=== PATIENT | female | born 1975 | race African-American/Black ===

== ENCOUNTER 2016-10-18 07:52 | Emergency (ER) | payer MEDICAID ==
[~2016-10-18] VITALS: Ht 165.1 cm; Wt 90.0 kg
[~2016-10-18 07:52] MED LIST: KETO10 PO
[2016-10-18 07:53] VITALS: BP 170/101; PULSE 97; RESP 17; TEMP 97.9; O2SAT 95
[2016-10-18] MEDS ORDERED: SODIUM CHLOR 0.9% 1000 ML INJ 1,000 ML IV ONE (08:21)
[2016-10-18] MEDS ORDERED: diphenhydrAMINE HCL 50 MG/ML VIAL IVP ONE (08:30)
[2016-10-18] MEDS ORDERED: SODIUM CHLORIDE 0.9% FLUSH 5 ML FLUSH IVF PRN (08:30)
[2016-10-18] MEDS ORDERED: MORPHINE SULFATE 4 MG/ML INJ IV PUSH ONE (08:30)
[2016-10-18] MEDS ORDERED: KETOROLAC TROMETHAMINE 30 MG/ML (IVP) VIAL IVP ONE (08:30)
[2016-10-18] MEDS ORDERED: PROCHLORPERAZINE INJ 10 MG/2 ML VIAL IVP ONE (08:30)
--- NOTE | 2016-10-18 08:35 | PD ---
HPI Chief Complaint: Headache Time Seen by Provider: 08:06 Travel History International Travel<30 days: No Contact w/Intl Traveler<30days: No Traveled to known affect area: No History of Present Illness HPI The patient is a 41-year-old [place] female who presents to the emergency department for headache. The patient states her headache started yesterday afternoon, after she awakened from a nap. The headache came on gradually, is located bilaterally in the temporal area, radiates to the neck bilaterally, but denies any posterior neck pain. The patient does complain of photophobia, nausea, and vomiting. The patient does have a history of similar headaches in the past, states she had a workup at ages 16 which was unremarkable. The patient does state she's had normal imaging in the past, is not currently followed by a neurologist. The patient does have a primary physician, Dr. Benson. The patient denies any weakness or numbness of the upper or lower extremities. The patient normal takes Tylenol for her headaches , however, the Tylenol did not alleviate her headache this time. PFSH Past Medical History ?: Not LMP: 10/14/16 : 5 Para: 5 Tubal Ligation: Yes Past Surgical History Section: Yes Social History Alcohol Use: No Tobacco Use: Yes (1 ppd) Substance Use: Yes (marijuana 01/10/16) Allergies-Medications (Allergen,Severity, Reaction): Coded Allergies: Lortab (Verified Allergy, Severe, Hives, 01/11/16) Reported Meds & Prescriptions Reported Meds & Active Scripts Active Toradol (Ketorolac Tromethamine) 10 Mg Tab 10 Mg PO Q8 *DO NOT EXCEED 40 MG/DAY* *DURATION IS NOT TO EXCEED 5 DAYS* Review of Systems Except as stated in HPI: all other systems reviewed are Neg General / Constitutional: No: Fever Eyes: Positive: Photophobia, No: Blurred Vision HENT: Positive: Headaches, Neck Pain, No: Neck Stiffness Cardiovascular: No: Chest Pain or Discomfort Respiratory: No: Shortness of Breath Gastrointestinal: Positive: Nausea, Vomiting, No: Abdominal Pain Musculoskeletal: No: Weakness Neurologic: Positive: Headache, No: Weakness, Paresthesia, Sensory Disturbance Physical Exam Narrative GENERAL: Awake, alert, pleasant 41-year-old female who appears her stated age and is in no acute respiratory distress. The patient initially is examined in a darkened room. SKIN: Warm and dry. HEAD: Atraumatic. Normocephalic. EYES: Pupils equal and round. Pupils are 4 mm bilateral and reactive. EOMs are intact. Patient is able to see fingers at a distance of 2 feet without difficulty. ENT: No nasal bleeding or discharge. Mucous membranes pink and moist. NECK: Trachea midline. No JVD. No meningeal signs. CARDIOVASCULAR: Regular rate and rhythm. No murmur appreciated. RESPIRATORY: No accessory muscle use. Clear to auscultation. Breath sounds equal bilaterally. GASTROINTESTINAL: Abdomen soft, non-tender, nondistended. MUSCULOSKELETAL: No obvious deformities. No clubbing. No cyanosis. No edema. NEUROLOGICAL: Awake and alert. No obvious cranial nerve deficits. Motor grossly within normal limits. Normal speech. Nonfocal. Oriented 4. Follows commands without difficulty. PSYCHIATRIC: Appropriate mood and affect; insight and judgment normal. Data Data Last Documented VS Vital Signs Date Time Temp Pulse Resp B/P Pulse Ox O2 Delivery O2 Flow Rate FiO2 10/18/16 09:20 79 18 147/81 100 Room Air 10/18/16 07:53 97.9 Orders Ecg Monitoring (10/18/16 08:21) Iv Access Insert/Monitor (10/18/16 08:21) Oximetry (10/18/16 08:21) Sodium Chloride 0.9% Flush (Ns Flush) (10/18/16 08:30) Ketorolac Inj (Toradol Inj) (10/18/16 08:30) Prochlorperazine Inj (Compazine Inj) (10/18/16 08:30) Diphenhydramine Inj (Benadryl Inj) (10/18/16 08:30) Sodium Chlor 0.9% 1000 Ml Inj (Ns 1000 M (10/18/16 08:21) Morphine Inj (Morphine Inj) (10/18/16 08:30) MDM Medical Decision Making Medical Screen Exam Complete: Yes Emergency Medical Condition: Yes Medical Record Reviewed: Yes Differential Diagnosis Differential diagnosis includes tension headache, migraine, subarachnoid hemorrhage, venous sinus thrombosis, cavernous sinus thrombosis, glaucoma. Narrative Course IV was established, the patient was placed on cardiac telemetry monitoring and continuous pulse oximetry monitoring, and the patient was administered a migraine cocktail. The patient was administered Toradol, morphine, Compazine, Benadryl, and IV fluids. The patient was reevaluated at 10:20 AM, her headache had resolved. Patient is stable for discharge home and outpatient follow-up. The patient has a ride in the room with her. Diagnosis Primary Impression: Cephalgia Qualified Code: R51 - Acute nonintractable headache, unspecified headache type Patient Instructions: General Instructions, Narcotic given in the ED Additional Instructions: Follow-up with your primary physician. Return if symptoms worsen or progress. Fioricet as needed for pain. Plenty fluids to stay hydrated. Med/Other Pt SpecificInfo: Prescription(s) given Scripts Jyvzgdkcgw-Dnlbkcyovnfyx-Ksibohio (Fioricet)50-300-40 Mg Cap1 Cap PO Q4H PRN ( HEADACHE) #12 CAP Ref 0 Prov:Jass Robles MD 10/18/16 Disposition: 01 DISCHARGE HOME Condition: Stable Jass Robles MD Oct 18, 2016 08:35
[2016-10-18 09:20] VITALS: BP 147/81; PULSE 79; RESP 18; O2SAT 100
[2016-10-18] MEDS ORDERED: BUTA1CAP PO (10:28)
== END 2016-10-18 11:10 | disposition home or self-care (01) ==
LOC: NEPC 07:52
DX: R51 Headache (principal); H53.149 Visual discomfort, unspecified; R11.2 Nausea with vomiting, unspecified; F17.210 Nicotine dependence, cigarettes, uncomplicated
CPT/HCPCS: 96361; 96374; 96375; 99283; J0780; J1200; J1885; J2270; J7030

== ENCOUNTER 2017-01-11 05:37 | Emergency (ER) | payer MEDICAID ==
[~2017-01-11 05:37] MED LIST changes: +BUTA1CAP PO
[2017-01-11 05:40] VITALS: BP 139/96; PULSE 105; RESP 20; TEMP 98.9; O2SAT 98
[2017-01-11] MEDS ORDERED: SODIUM CHLOR 0.9% 1000 ML INJ 1,000 ML IV SCH (06:01)
[2017-01-11] MEDS ORDERED: SODIUM CHLORIDE 0.9% FLUSH 10 ML FLUSH IV FLUSH PRN (06:15)
[2017-01-11] MEDS ORDERED: ONDANSETRON HCL 4 MG/2 ML VIAL IVP ONE (06:15)
[2017-01-11] MEDS ORDERED: MORPHINE SULFATE 4 MG/ML INJ IV PUSH ONE (06:15)
[2017-01-11] MEDS ORDERED: diphenhydrAMINE HCL 50 MG/ML VIAL IV PUSH ONE (06:15)
--- NOTE | 2017-01-11 06:22 | PD ---
HPI Chief Complaint: Abdominal Pain Time Seen by Provider: 05:50 Travel History International Travel<30 days: No Contact w/Intl Traveler<30days: No Traveled to known affect area: No History of Present Illness HPI 41yo F with no PMH presents to the ED with c/o right lower quadrant pain about an hour prior to arrival. +NBNB vomiting. Denies any fever, chest pain, sob, dysuria, hematuria, vaginal discharge or bleeding. PSH . Did not take anything for pain before. States it is constant, severe, and hard to describe. PFSH Past Medical History Medical History: Denies Significant Hx Diminished Hearing: No Tetanus Vaccination: Unknown Influenza Vaccination: No ?: Not : 5 Para: 5 Tubal Ligation: Yes Past Surgical History Surgical History: No Previous Surgery Section: Yes Social History Alcohol Use: No Tobacco Use: Yes (1 ppd) Substance Use: Yes (marijuana 01/10/16) Allergies-Medications (Allergen,Severity, Reaction): Coded Allergies: Lortab (Verified Allergy, Severe, Hives, 01/11/17) Reported Meds & Prescriptions Reported Meds & Active Scripts Active Fioricet (Jdlnbsqeai-Ikmswpzsrhsli-Akemfxeu) 50-300-40 Mg Cap 1 Cap PO Q4H PRN Review of Systems Except as stated in HPI: all other systems reviewed are Neg Physical Exam Narrative GENERAL: 41yo F in moderate distress. SKIN: Focused skin assessment warm/dry. HEAD: Atraumatic. Normocephalic. CARDIOVASCULAR: Regular rate and rhythm. No murmur appreciated. RESPIRATORY: No accessory muscle use. Clear to auscultation. Breath sounds equal bilaterally. GASTROINTESTINAL: Abdomen soft, +TTP RLQ. +TTP suprapubic region. No rebound tenderness or guarding. MUSCULOSKELETAL: No obvious deformities. No clubbing. No cyanosis. No edema. NEUROLOGICAL: Awake and alert. No obvious cranial nerve deficits. Motor grossly within normal limits. Normal speech. PSYCHIATRIC: Appropriate mood and affect; insight and judgment normal. Data Data Last Documented VS Vital Signs Date Time Temp Pulse Resp B/P Pulse Ox O2 Delivery O2 Flow Rate FiO2 01/11/17 11:08 67 15 120/60 98 01/11/17 07:56 Room Air 01/11/17 05:40 98.9 Orders Complete Blood Count With Diff (01/11/17 06:01) Comprehensive Metabolic Panel (01/11/17 06:01) Lipase (01/11/17 06:01) Prothrombin Time / Inr (Pt) (01/11/17 06:01) Act Partial Throm Time (Ptt) (01/11/17 06:01) Urinalysis - C+S If Indicated (01/11/17 06:01) Ct Abd/Pel W Iv Contrast(Rout) (01/11/17 06:01) Iv Access Insert/Monitor (01/11/17 06:01) Ecg Monitoring (01/11/17 06:01) Oximetry (01/11/17 06:01) Morphine Inj (Morphine Inj) (01/11/17 06:15) Ondansetron Inj (Zofran Inj) (01/11/17 06:15) Sodium Chlor 0.9% 1000 Ml Inj (Ns 1000 M (01/11/17 06:01) Sodium Chloride 0.9% Flush (Ns Flush) (01/11/17 06:15) Bhcg Screen Qualitative (01/11/17 06:01) Diphenhydramine Inj (Benadryl Inj) (01/11/17 06:15) Iohexol 350 Inj (Omnipaque 350 Inj) (01/11/17 08:28) Sodium Chlor 0.9% 1000 Ml Inj (Ns 1000 M (01/11/17 10:00) Labs Laboratory Tests Test 01/11/17 01/11/17 05:50 10:00 White Blood Count 12.6 TH/MM3 Red Blood Count 4.63 MIL/MM3 Hemoglobin 9.6 GM/DL Hematocrit 31.3 % Mean Corpuscular Volume 67.7 FL Mean Corpuscular Hemoglobin 20.8 PG Mean Corpuscular Hemoglobin 30.7 % Concent Red Cell Distribution Width 21.2 % Platelet Count 248 TH/MM3 Mean Platelet Volume 9.5 FL Neutrophils (%) (Auto) 48.6 % Lymphocytes (%) (Auto) 36.4 % Monocytes (%) (Auto) 10.4 % Eosinophils (%) (Auto) 3.9 % Basophils (%) (Auto) 0.7 % Neutrophils # (Auto) 6.1 TH/MM3 Lymphocytes # (Auto) 4.6 TH/MM3 Monocytes # (Auto) 1.3 TH/MM3 Eosinophils # (Auto) 0.5 TH/MM3 Basophils # (Auto) 0.1 TH/MM3 CBC Comment DIFF FINAL Differential Comment Prothrombin Time 10.5 SEC Prothromb Time International 1.0 RATIO Ratio Activated Partial 23.6 SEC Thromboplast Time Sodium Level 139 MEQ/L Potassium Level 3.2 MEQ/L Chloride Level 105 MEQ/L Carbon Dioxide Level 25.7 MEQ/L Anion Gap 8 MEQ/L Blood Urea Nitrogen 6 MG/DL Creatinine 0.84 MG/DL Estimat Glomerular Filtration 90 ML/MIN Rate Random Glucose 101 MG/DL Calcium Level 8.7 MG/DL Total Bilirubin 0.2 MG/DL Aspartate Amino Transf 15 U/L (AST/SGOT) Alanine Aminotransferase 15 U/L (ALT/SGPT) Alkaline Phosphatase 73 U/L Total Protein 8.0 GM/DL Albumin 3.3 GM/DL Lipase 136 U/L Beta HCG, Qualitative LESS THAN 1 MIU/ML Urine Color YELLOW Urine Turbidity CLEAR Urine pH 6.5 Urine Specific [place] GREATER THAN 1.050 Urine Protein TRACE mg/dL Urine Glucose (UA) NEG mg/dL Urine Ketones NEG mg/dL Urine Occult Blood NEG Urine Nitrite NEG Urine Bilirubin NEG Urine Urobilinogen LESS THAN 2.0 MG/DL Urine Leukocyte Esterase NEG Urine RBC 1 /hpf Urine WBC LESS THAN 1 /hpf Urine Squamous Epithelial 8 /hpf Cells Urine Mucus FEW /lpf Microscopic Urinalysis Comment CULT NOT INDICATED MDM Medical Decision Making Medical Screen Exam Complete: Yes Emergency Medical Condition: Yes Differential Diagnosis Acute appendicitis vs. cystitis vs. colitis Narrative Course 41yo F with RLQ pain for 1 hour with nausea and NBNB vomiting. IV placed, will obtain labs, and do CTa/p+ to r/o appendicitis. Pt states she can have morphine but needs benadryl with it because it causes itching. Denies any anaphylactic reaction to it. Sign out to next team to follow up labs, CT and disposition. Diagnosis Primary Impression: Abdominal pain Qualified Code: R10.9 - Abdominal pain, unspecified location Ivonne Beth DO Jan 11, 2017 06:22
[2017-01-11 06:25] VITALS: RESP 28; O2SAT 98
[2017-01-11 07:00] LABS: AUTOMATED NEUTROPHIL # 6.1 TH/MM3 (1.8-7.7); BASOPHIL # 0.1 TH/MM3 (0-0.2); BASOPHIL % 0.7 % (0.0-2.0); EOSINOPHIL # 0.5 TH/MM3 (0-0.4); EOSINOPHIL % 3.9 % (0.0-4.0); HEMATOCRIT 31.3 % (35.0-46.0); HEMO FLAGS DIFF FINAL; LYMPH % 36.4 % (9.0-44.0); LYMPHOCYTE # 4.6 TH/MM3 (1.0-4.8); MEAN CELL VOLUME 67.7 FL (80.0-100.0); MEAN CORPUSCULAR HEMOGLOBIN 20.8 PG (27.0-34.0); MEAN CORPUSCULAR HGB CONC 30.7 % (32.0-36.0); MONO % 10.4 % (0.0-8.0); NEUT % 48.6 % (16.0-70.0); PLATELET COUNT 248 TH/MM3 (150-450); RED BLOOD COUNT 4.63 MIL/MM3 (4.00-5.30); RED CELL DISTRIBUTION WIDTH 21.2 % (11.6-17.2); WHITE BLOOD COUNT 12.6 TH/MM3 (4.0-11.0)
[2017-01-11 07:04] LABS: APTT (PATIENT) 23.6 SEC (24.3-30.1); PROTHROMBIN TIME - PATIENT 10.5 SEC (9.8-11.6)
[2017-01-11 07:16] LABS: ANION GAP 8 MEQ/L (5-15); AST (GOT) 15 U/L (15-37); BICARBONATE 25.7 MEQ/L (21.0-32.0); BLOOD UREA NITROGEN 6 MG/DL (7-18); CHLORIDE 105 MEQ/L (98-107); GLOMERULAR FILTRATION RATE 90 ML/MIN (>89); POTASSIUM 3.2 MEQ/L (3.5-5.1); SODIUM (NA) 139 MEQ/L (136-145)
[2017-01-11 07:17] LABS: ALT (GPT) 15 U/L (10-53)
[2017-01-11 07:21] LABS: ALKALINE PHOSPHATASE 73 U/L (45-117); TOTAL BILIRUBIN ADULT 0.2 MG/DL (0.2-1.0)
[2017-01-11 07:22] LABS: BHCG SCREEN QUALITATIVE LESS THAN 1 MIU/ML (0-5)
[2017-01-11 07:56] VITALS: BP 122/77; PULSE 77; RESP 18; O2SAT 97
[2017-01-11] MEDS ORDERED: IOHEXOL 350 MG/ML 10 ML VIAL (for RAD DIAG) IV ONE (08:28)
--- NOTE | 2017-01-11 09:53 | RADRPT ---
EXAM DATE/TIME: 01/11/2017 08:14 [facility] COMPARISON: No previous studies available for comparison. INDICATIONS : Right lower quadrant pain for 1 day. IV CONTRAST: 97 cc Omnipaque 350 (iohexol) IV ORAL CONTRAST: No oral contrast ingested. RADIATION DOSE: 12.49 CTDIvol (mGy) MEDICAL HISTORY : NONE SURGICAL HISTORY : Tubal ligation. section. ENCOUNTER: Initial ACUITY: 1 day PAIN SCALE: 6/10 LOCATION: Right lower quadrant TECHNIQUE: Volumetric scanning of the abdomen and pelvis was performed. Using automated exposure control and ad justment of the mA and/or kV according to patient size, radiation dose was kept as low as reasonably achievable to obtain optimal diagnostic quality images. FINDINGS: LOWER LUNGS: Minimal atelectasis in the right lung base. 2 cm cyst at the extreme right lung base. LIVER: Homogeneous density without lesion. There is no dilation of the biliary tree. No calcified gallston es. SPLEEN: Normal size without lesion. PANCREAS: Within normal limits. KIDNEYS: Normal in size and shape. There is no mass, stone or hydronephrosis. ADRENAL GLANDS: Within normal limits. VASCULAR: There is no aortic aneurysm. BOWEL/MESENTERY: The appendix is not definitively visualized. There is a tubular structure noted in the region of the expected appendix which is normal in appearance. There are no secondary signs of appendicitis. No per icecal nodes or inflammatory change. ABDOMINAL WALL: Very small fat containing or midline anterior abdominal hernia approximately 4 cm above the umbilicus . RETROPERITONEUM: There is a 2.9 x 4.2 x 3.7 cm enhancing mass in the right uterine wall. No associated calcifications. Uterus and adnexa are otherwise unremarkable for age. BLADDER: No wall thickening or mass. REPRODUCTIVE: Within normal limits. INGUINAL: There is no lymphadenopathy or hernia. MUSCULOSKELETAL: Within normal limits for patient age. CONCLUSION: 1. No definite appendix is identified. No secondary findings for appendicitis. 2. 2.9 x 4.2 x 3.7 cm enhancing right uterine mass, likely reflecting uterine leiomyoma. Consider fur ther evaluation with ultrasound exam. 3. Very small fat containing anterior bowel wall hernia. Obie Joe MD on January 11, 2017 at 9:26 Board Certified Radiologist. This report was verified electronically.
[2017-01-11] MEDS ORDERED: SODIUM CHLOR 0.9% 1000 ML INJ 1,000 ML IV ONE (10:00)
[2017-01-11 10:33] LABS: BLOOD, URINE NEG (NEG); COMMENT (UR) CULT NOT INDICATED; CULTURE IF INDICATED CULT NOT INDICATED; GLUCOSE,URINE NEG (NEG); KETONE, URINE NEG (NEG); MUCUS URINE FEW /lpf (OCC); NITRITE,URINE NEG (NEG); PH, URINE 6.5 (5.0-8.5); SQUAMOUS EPITHELIAL CELL URINE 8 /hpf (0-5); URINE COLOR YELLOW (YELLW/STRAW)
--- NOTE | 2017-01-11 10:34 | PD ---
Physical Exam Narrative GENERAL: Well-nourished, well-developed patient. well appearing SKIN: Warm and dry. HEAD: Normocephalic and atraumatic. EYES: No injection or drainage. ENT: No nasal drainage noted. NECK: Supple, trachea midline. CARDIOVASCULAR: Regular rate and rhythm RESPIRATORY: no increased effort. No accessory muscle use. NEUROLOGICAL: Awake and alert. Motor and sensory grossly within normal limits. Normal speech. Data Data Last Documented VS Vital Signs Date Time Temp Pulse Resp B/P Pulse Ox O2 Delivery O2 Flow Rate FiO2 01/11/17 11:08 67 15 120/60 98 01/11/17 07:56 Room Air 01/11/17 05:40 98.9 Orders Complete Blood Count With Diff (01/11/17 06:01) Comprehensive Metabolic Panel (01/11/17 06:01) Lipase (01/11/17 06:01) Prothrombin Time / Inr (Pt) (01/11/17 06:01) Act Partial Throm Time (Ptt) (01/11/17 06:01) Urinalysis - C+S If Indicated (01/11/17 06:01) Ct Abd/Pel W Iv Contrast(Rout) (01/11/17 06:01) Iv Access Insert/Monitor (01/11/17 06:01) Ecg Monitoring (01/11/17 06:01) Oximetry (01/11/17 06:01) Morphine Inj (Morphine Inj) (01/11/17 06:15) Ondansetron Inj (Zofran Inj) (01/11/17 06:15) Sodium Chlor 0.9% 1000 Ml Inj (Ns 1000 M (01/11/17 06:01) Sodium Chloride 0.9% Flush (Ns Flush) (01/11/17 06:15) Bhcg Screen Qualitative (01/11/17 06:01) Diphenhydramine Inj (Benadryl Inj) (01/11/17 06:15) Iohexol 350 Inj (Omnipaque 350 Inj) (01/11/17 08:28) Sodium Chlor 0.9% 1000 Ml Inj (Ns 1000 M (01/11/17 10:00) Labs Laboratory Tests Test 01/11/17 01/11/17 05:50 10:00 White Blood Count 12.6 TH/MM3 Red Blood Count 4.63 MIL/MM3 Hemoglobin 9.6 GM/DL Hematocrit 31.3 % Mean Corpuscular Volume 67.7 FL Mean Corpuscular Hemoglobin 20.8 PG Mean Corpuscular Hemoglobin 30.7 % Concent Red Cell Distribution Width 21.2 % Platelet Count 248 TH/MM3 Mean Platelet Volume 9.5 FL Neutrophils (%) (Auto) 48.6 % Lymphocytes (%) (Auto) 36.4 % Monocytes (%) (Auto) 10.4 % Eosinophils (%) (Auto) 3.9 % Basophils (%) (Auto) 0.7 % Neutrophils # (Auto) 6.1 TH/MM3 Lymphocytes # (Auto) 4.6 TH/MM3 Monocytes # (Auto) 1.3 TH/MM3 Eosinophils # (Auto) 0.5 TH/MM3 Basophils # (Auto) 0.1 TH/MM3 CBC Comment DIFF FINAL Differential Comment Prothrombin Time 10.5 SEC Prothromb Time International 1.0 RATIO Ratio Activated Partial 23.6 SEC Thromboplast Time Sodium Level 139 MEQ/L Potassium Level 3.2 MEQ/L Chloride Level 105 MEQ/L Carbon Dioxide Level 25.7 MEQ/L Anion Gap 8 MEQ/L Blood Urea Nitrogen 6 MG/DL Creatinine 0.84 MG/DL Estimat Glomerular Filtration 90 ML/MIN Rate Random Glucose 101 MG/DL Calcium Level 8.7 MG/DL Total Bilirubin 0.2 MG/DL Aspartate Amino Transf 15 U/L (AST/SGOT) Alanine Aminotransferase 15 U/L (ALT/SGPT) Alkaline Phosphatase 73 U/L Total Protein 8.0 GM/DL Albumin 3.3 GM/DL Lipase 136 U/L Beta HCG, Qualitative LESS THAN 1 MIU/ML Urine Color YELLOW Urine Turbidity CLEAR Urine pH 6.[address] GREATER THAN 1.050 Urine Protein TRACE mg/dL Urine Glucose (UA) NEG mg/dL Urine Ketones NEG mg/dL Urine Occult Blood NEG Urine Nitrite NEG Urine Bilirubin NEG Urine Urobilinogen LESS THAN 2.0 MG/DL Urine Leukocyte Esterase NEG Urine RBC 1 /hpf Urine WBC LESS THAN 1 /hpf Urine Squamous Epithelial 8 /hpf Cells Urine Mucus FEW /lpf Microscopic Urinalysis Comment CULT NOT INDICATED MDM Supervised Visit with ZIYAD: No Interpretation(s) CBC & BMP Diagram 01/11/17 05:50 Last 24 hours Impressions Abdomen/Pelvis CT 01/11/17 0601 Signed Impressions: Service Date/Time: Wednesday, January 11, 2017 08:14 - CONCLUSION: 1. No definite appendix is identified. No secondary findings for appendicitis. 2. 2.9 x 4.2 x 3.7 cm enhancing right uterine mass, likely reflecting uterine leiomyoma. Consider further evaluation with ultrasound exam. 3. Very small fat containing anterior bowel wall hernia. Obie Joe MD Narrative Course CT scan unable to fully visualize the appendix but tubular structure in that area without changes or any changes in right lower quadrant,Patient denies any new complaints and states that they are feeling better. Given copy of CT, Patient happy with care, all questions answered. Patient knows that follow up is incumbent on them and to return to the emergency room immediately if new or worsening symptoms develop. Patient given strict return precautions, vitals reviewed and are normal, agrees to further workup as an outpatient. Diagnosis Primary Impression: Abdominal pain Qualified Code: R10.9 - Abdominal pain, unspecified location Patient Instructions: General Instructions Additional Instruction: tylenol as needed, follow with primary this week for recheck, return as needed Med/Other Pt SpecificInfo: No Change to Meds Disposition: 01 DISCHARGE HOME Condition: Stable Obdulia Gudino MD Jan 11, 2017 10:34
[2017-01-11 11:08] VITALS: BP 120/60
== END 2017-01-11 11:26 | disposition home or self-care (01) ==
LOC: NEPC 05:37
DX: R10.31 Right lower quadrant pain (principal); F17.210 Nicotine dependence, cigarettes, uncomplicated; F12.90 Cannabis use, unspecified, uncomplicated
CPT/HCPCS: 74177; 80053; 81001; 83690; 84703; 85025; 85610; 85730; 96361; 96374; 96375; 99285; J1200; J2270; J2405; J7030; Q9967

== ENCOUNTER 2017-07-20 16:17 | Emergency (ER) | payer MEDICAID ==
[~2017-07-20 16:17] MED LIST changes: -KETO10 PO
[2017-07-20 16:19] VITALS: BP 144/96; PULSE 104; RESP 18; TEMP 98.6; O2SAT 98
--- NOTE | 2017-07-20 16:45 | RADRPT ---
EXAM DATE/TIME: 07/20/2017 16:39 [facility] COMPARISON: No previous studies available for comparison. INDICATIONS : Left shoulder pain after fall. MEDICAL HISTORY : None. SURGICAL HISTORY : None. ENCOUNTER: Initial ACUITY: 1 day PAIN SCORE: 7/10 LOCATION: Left anterior shoulder. FINDINGS: Multiple view examination of the left shoulder demonstrates no evidence of fracture or dislocation. The glenohumeral and acromioclavicular joints are maintained. There is normal range of motion betwee n internal and external rotation. Bony mineralization is normal. CONCLUSION: No acute disease. Lobito Nelson MD on July 20, 2017 at 16:43 Board Certified Radiologist. This report was verified electronically.
[2017-07-20] MEDS ORDERED: IBUP1TAB7 PO (17:59)
--- NOTE | 2017-07-20 17:59 | PD ---
HPI Chief Complaint: Musculoskeletal Complaint Time Seen by Provider: 17:54 Travel History International Travel<30 days: No Contact w/Intl Traveler<30days: No Traveled to known affect area: No History of Present Illness HPI 42-year-old female presents to emergency Department with complaint of left shoulder pain after slipping on a wet floor while mopping and landing dry- cleaning on her left shoulder. Denies hitting her head or loss of consciousness. Denies neck pain or back pain. Denies paresthesias, loss of sensation to the affected extremity. Reports decreased range of motion of the left shoulder. Denies chest pain, shortness of breath, abdominal pain, vomiting. Took ibuprofen for symptom management. Rates pain 7/10. Describes as throbbing sensation. Pain is worse with movement and palpation. Has an established primary care for provider but cannot pronounce his name. Allergies to acetaminophen and hydrocodone. Has no other medical complaints. No other modifying factors or associated signs and symptoms. PFSH Past Medical History Diminished Hearing: No ?: Not LMP: no BTL : 5 Para: 5 Tubal Ligation: Yes Past Surgical History Section: Yes Social History Alcohol Use: No Tobacco Use: Yes (1 ppd) Substance Use: Yes (marijuana 01/10/16) Allergies-Medications (Allergen,Severity, Reaction): Coded Allergies: acetaminophen (Unverified Allergy, Severe, Hives, 03/21/17) hydrocodone (Unverified Allergy, Severe, Hives, 03/21/17) Reported Meds & Prescriptions Reported Meds & Active Scripts Active Ibuprofen 800 Mg Tab 800 Mg PO Q6HR PRN Fioricet (Pofvfprvbw-Ovanbamxvtwvl-Dnunvbjx) 50-300-40 Mg Cap 1 Cap PO Q4H PRN Review of Systems Except as stated in HPI: all other systems reviewed are Neg Physical Exam Narrative GENERAL: Well-nourished, well-developed patient, in no acute distress SKIN: Warm and dry. HEAD: Atraumatic. Normocephalic. EYES: Pupils equal and round. No scleral icterus. No injection or drainage. ENT: Mucosa pink and moist. Airway patent. NECK: Supple. Trachea midline. CARDIOVASCULAR: Regular rate. RESPIRATORY: No accessory muscle use. GASTROINTESTINAL: Obese. MUSCULOSKELETAL: Left shoulder with limited range of motion; approximately 45 abduction; left shoulder with no obvious deformities; shoulders equal. 5/5 strength. Left upper extremity supple and non-tense. 2+ radial pulse and sensory intact. No obvious deformities. No clubbing. No cyanosis. No edema. NEUROLOGICAL: Awake and alert. Oriented 3. No obvious cranial nerve deficits. Motor grossly within normal limits. Normal speech. PSYCHIATRIC: Appropriate mood and affect; insight and judgment normal. Data Data Last Documented VS Vital Signs Date Time Temp Pulse Resp B/P (MAP) Pulse Ox O2 Delivery O2 Flow Rate FiO2 07/20/17 16:19 98.6 104 18 144/96 (112) 98 Room Air Orders Orders Shoulder, Complete (>2vws) (07/20/17 ) [facility] Medical Decision Making Medical Screen Exam Complete: Yes Emergency Medical Condition: Yes Medical Record Reviewed: Yes Differential Diagnosis Shoulder injury, shoulder contusion, shoulder fracture, fall Narrative Course 42-year-old female with left shoulder injury after a mechanical slip and fall. Denies hitting her head or loss of consciousness. Denies neck pain or back pain. Left shoulder x-ray ordered in triage. Patient took ibuprofen prior to arrival. 1755: Left shoulder x-ray concludes: Shoulder X-Ray 07/20/17 0000 Signed Impressions: Service Date/Time: July 16:39 - CONCLUSION: No acute disease. Lobito Nelson MD X-ray findings discussed with the patient. Ibuprofen prescribed for home. Instructed patient to follow up with primary care provider. Patient verbalizes understanding and agreement with treatment plan. Patient is medically cleared and stable for discharge. Discussed reasons to return to the emergency department. Patient agrees with treatment plan. The patients vital signs are stable and the patient is stable for outpatient follow-up and treatment. Patient discharged home, stable and in no acute distress. Diagnosis Primary Impression: Injury of left shoulder Qualified Codes: S49.92XA - Unspecified injury of left shoulder and upper arm , initial encounter Referrals: Orthopaedic Surgeon Primary Care Physician Patient Instructions: General Instructions, Shoulder Sprain (ED) Additional Instructions: Tylenol or ibuprofen as needed and as directed to reduce pain and inflammation Rest, ice, and compress extremity to decrease pain and inflammation Arm sling for support Avoid aggravating activity; increase activity as tolerated Follow-up with primary care provider Follow-up with orthopedics as needed Return to the emergency department immediately with worsening symptoms Med/Other Pt SpecificInfo: Prescription(s) given Scripts Ibuprofen (Ibuprofen) 800 Mg Tab 800 MG PO Q6HR Y for PAIN, #30 TAB 0 Refills Prov: Gayla Antunez 07/20/17 Disposition: 01 DISCHARGE HOME Condition: Stable Gayla Antunez Jul 20, 2017 17:59
== END 2017-07-20 18:19 | disposition home or self-care (01) ==
LOC: NEPK 16:17
DX: S49.92XA Unspecified injury of left shoulder and upper arm, initial encounter (principal); W01.0XXA Fall on same level from slipping, tripping and stumbling without subsequent striking against object, initial encounter; Y93.E5 Activity, floor mopping and cleaning
CPT/HCPCS: 73030; 99284

== ENCOUNTER 2017-10-17 13:08 | Emergency (ER) | payer MEDICAID ==
[~2017-10-17 13:08] MED LIST changes: +IBUP1TAB7 PO
[2017-10-17 13:21] VITALS: BP 153/95; PULSE 113; RESP 20; TEMP 98.6; O2SAT 100
[2017-10-17 14:00] LABS: AUTOMATED NEUTROPHIL # 7.9 TH/MM3 (1.8-7.7); BASOPHIL # 0.1 TH/MM3 (0-0.2); BASOPHIL % 0.7 % (0.0-2.0); EOSINOPHIL # 0.3 TH/MM3 (0-0.4); EOSINOPHIL % 2.2 % (0.0-4.0); HEMATOCRIT 28.9 % (35.0-46.0); HEMOGLOBIN 8.7 GM/DL (11.6-15.3); LYMPHOCYTE # 2.8 TH/MM3 (1.0-4.8); MEAN CELL VOLUME 63.5 FL (80.0-100.0); MEAN CORPUSCULAR HEMOGLOBIN 19.1 PG (27.0-34.0); MEAN CORPUSCULAR HGB CONC 30.1 % (32.0-36.0); MEAN PLATELET VOLUME 8.5 FL (7.0-11.0); MONO % 6.8 % (0.0-8.0); MONOCYTE # 0.8 TH/MM3 (0-0.9); NEUT % 66.3 % (16.0-70.0); PLATELET COUNT 303 TH/MM3 (150-450); RED BLOOD COUNT 4.55 MIL/MM3 (4.00-5.30); WHITE BLOOD COUNT 11.9 TH/MM3 (4.0-11.0)
[2017-10-17 14:16] LABS: ALBUMIN 3.5 GM/DL (3.4-5.0); AST (GOT) 15 U/L (15-37); BICARBONATE 22.1 MEQ/L (21.0-32.0); BLOOD UREA NITROGEN 6 MG/DL (7-18); CALCIUM 9.5 MG/DL (8.5-10.1); CHLORIDE 104 MEQ/L (98-107); CREATININE 0.91 MG/DL (0.50-1.00); GLOMERULAR FILTRATION RATE 82 ML/MIN (>89); GLUCOSE,RANDOM 101 MG/DL (74-106); SODIUM (NA) 136 MEQ/L (136-145)
--- NOTE | 2017-10-17 14:16 | RADRPT ---
EXAM DATE/TIME: 10/17/2017 14:09 [place] COMPARISON: None. INDICATIONS : <<Cephalgia. >> RADIATION DOSE: <<42.25>> CTDIvol (mGy) MEDICAL HISTORY : None SURGICAL HISTORY : section. Hernia repair. ENCOUNTER: Initial ACUITY: 2 days PAIN SCALE: 7/10 LOCATION: Right cranial TECHNIQUE: Multiple contiguous axial images were obtained of the head. Using automated exposure control and adj ustment of the mA and/or kV according to patient size, radiation dose was kept as low as reasonably a chievable to obtain optimal diagnostic quality images. DICOM format image data is available electro nically for review and comparison. FINDINGS: CEREBRUM: The ventricles are normal for age. No evidence of midline shift, mass lesion, hemorrhage or acute in farction. No extra-axial fluid collections are seen. POSTERIOR FOSSA: The cerebellum and brainstem are intact. The 4th ventricle is midline. The cerebellopontine angle i s unremarkable. EXTRACRANIAL: The visualized portion of the orbits is intact. SKULL: The calvaria is intact. No evidence of skull fracture. CONCLUSION: Normal examination for a patient of this age. Oscar Boothe MD on October 17, 2017 at 14:13 Board Certified Radiologist. This report was verified electronically.
[2017-10-17 14:21] LABS: ACETAMINOPHEN 4.4 MCG/ML (10.0-30.0); ALKALINE PHOSPHATASE 79 U/L (45-117); ALT (GPT) 18 U/L (10-53); TOTAL BILIRUBIN ADULT 0.3 MG/DL (0.2-1.0); TOTAL PROTEIN 8.5 GM/DL (6.4-8.2)
[2017-10-17] MEDS ORDERED: diphenhydrAMINE HCL 50 MG/ML VIAL IM ONE (16:30)
[2017-10-17] MEDS ORDERED: ACETAMIN 325 MG/BUTALBITAL 50 MG/CAFFEINE 40 MG TAB PO ONE (16:30)
[2017-10-17] MEDS ORDERED: PROCHLORPERAZINE INJ 10 MG/2 ML VIAL IM ONE (16:30)
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
[2017-10-17 18:07] VITALS: BP 124/78; PULSE 94; RESP 16; O2SAT 100
== END 2017-10-17 18:00 | disposition home or self-care (01) ==
LOC: NEPD 13:08
DX: G43.009 Migraine without aura, not intractable, without status migrainosus (principal); N93.8 Other specified abnormal uterine and vaginal bleeding; F17.200 Nicotine dependence, unspecified, uncomplicated; F12.90 Cannabis use, unspecified, uncomplicated
CPT/HCPCS: 70450; 80053; 80307; 83690; 85025; 96372; 99284; J0780; J1200